=== PATIENT | female | born 1980 ===

== ENCOUNTER 2018-03-14 06:57 | Inpatient (IN) | payer OTHER ==
[~2018-03-14] VITALS: Ht 170.2 cm; Wt 150.0 kg
[~2018-03-14 06:57] MED LIST: PROTONIX40 MG PO; ZITHROMAX500 MG PO
== END 2018-03-15 17:26 | disposition home or self-care (01) | DRG 748 ==
LOC: CIR.AMB 06:57 → SURG 20:05
PROVIDERS: Obstetrics & Gynecology
PROC: 0JQC0ZZ Repair Pelvic Region Subcutaneous Tissue and Fascia, Open Approach (ICD-10-PCS; principal; 2018-03-14 08:30)
DX: N81.11 Cystocele, midline (principal); N81.6 Rectocele